=== PATIENT | female | born 1960 | race Caucasian/White ===

== ENCOUNTER 2016-08-30 08:36 | Emergency (ER) | payer OTHER ==
--- NOTE | 2016-08-30 11:32 | UC ---
Lower Extremity/Ankle HPI - HPI Summary HPI Summary: complaint of left foot pain woke up in the sunday night with bad headache and bit her tongue felt like she might have had seizure she got out of bed and felt pain in the \lateral side of her left foot swelling and pain has increased since yesterday ambulating and pressure increase the pain pain is in 5ifth toe and 4th and 5th metatarsals resting and elevation reduces the pain denies any headache and seizures since sunday contacted neurologist who recommened increase in depakote until her followup appt next week - History of Current Complaint Chief Complaint: UCLowerExtremity Stated Complaint: FOOT INJURY Time Seen by Provider: 08/30/16 11:16 Hx Obtained From: Patient Hx Last Menstrual Period: 09/2015 - Allergies/Home Medications Allergies/Adverse Reactions: Allergies Allergy/AdvReac Type Severity Reaction Status Date / Time Doxycycline Allergy Heartburn Verified 08/30/16 09:17 Ephedrine Allergy Unknown Verified 08/30/16 09:17 Reaction Details Home Medications: Home Medications Divalproex Sodium [Depakote] 500 mg PO BEDTIME 08/30/16 [History Confirmed 08/30] PMH/Surg Hx/FS Hx/Imm Hx Previously Healthy: Yes Neurological History: Seizures - Surgical History Surgical History: None - Family History Known Family History: Positive: Other - cancer Negative: Cardiac Disease, Hypertension, Diabetes - Social History Occupation: Employed Full-time Lives: With Family Alcohol Use: Weekly Alcohol Amount: couple times a week Substance Use Type: None Smoking Status (MU): Former Smoker - Immunization History Most Recent Influenza Vaccination: 2013 Most Recent Tetanus Shot: 2013 Most Recent Pneumonia Vaccination: not received Review of Systems Constitutional: Negative Skin: Negative Eyes: Negative ENT: Negative Respiratory: Negative Cardiovascular: Negative Gastrointestinal: Negative Genitourinary: Negative Motor: Negative Neurovascular: Negative Musculoskeletal: Other: - left foot pain Neurological: Negative Psychological: Negative All Other Systems Reviewed And Are Negative: Yes Physical Exam Triage Information Reviewed: Yes Appearance: No Pain Distress, Well-Nourished Vital Signs: Initial Vital Signs Temp 98.4 F 08/30/16 09:21 Pulse 75 08/30/16 09:21 Resp 16 08/30/16 09:21 BP 120/78 08/30/16 09:21 Pulse Ox 100 08/30/16 09:21 Vital Signs Reviewed: Yes Eyes: Positive: Conjunctiva Clear ENT: Positive: Pharynx normal, TMs normal Neck: Positive: No Lymphadenopathy Respiratory: Positive: Lungs clear, Normal breath sounds, No respiratory distress, No accessory muscle use Cardiovascular: Positive: RRR, No Murmur, Pulses Normal, Brisk Capillary Refill Abdomen Description: Positive: Nontender, Soft Bowel Sounds: Positive: Present Musculoskeletal: Positive: Other: - LLE-No bony deformities, tenderness in 4th and 5th metatarsal and joints of 4th and 5th toes, ecchymosis over distal 5th metatarsal, Full ROM dorsi/plantar flexion, inversion & eversion. Dupuyer test negative. Neurological Exam: Normal Psychological Exam: Normal Skin Exam: Normal Lower Extremity Course/Dx - Course Course Of Treatment: exam completed. xray fhows no fracture. will treat with rest, ice NSAIDS- followup with Dr Abdi if no improvement - Differential Dx/Diagnosis Differential Diagnosis/HQI/PQRI: Contusion, Fracture (Closed) Provider Diagnoses: left foot contusion Discharge - Discharge Plan Condition: Stable Disposition: HOME Patient Education Materials: Foot Contusion (ED) Referrals: Manuel Christine MD [Primary Care Provider] - Nirali Abdi MD [Medical Doctor] - Additional Instructions: Please use crutches for several days to rest your foot apply ice and elevate foot, take acetaminophen for pain as needed If no improvement call research specialist for an appointment. They will evaluate and determine if you need further treatment. Please review your discharge instructions. If your symptoms worsen call research specialist or return to urgent care.
[2016-08-30] MEDS ORDERED: Acetaminophen TAB* 325 MG PO ONE (11:38)
[2016-08-30 11:49] VITALS: BP 121/70
--- NOTE | 2016-08-30 12:36 | RAD ---
INDICATION: Left fourth and fifth metatarsal pain 5 days after doing art work COMPARISON: None. TECHNIQUE: 3 views of the left foot were obtained. FINDINGS: The adequately corticated bones are properly aligned. Joint spaces appear maintained. No fracture, dislocation or focal bony abnormality is seen. IMPRESSION: Normal radiograph of the left foot. If the patient's symptoms persist, follow-up imaging is recommended.
== END 2016-08-30 13:00 | disposition home or self-care (01) ==
LOC: UCEAST 08:36
DX: S90.32XA Contusion of left foot, initial encounter (principal); Z87.891 Personal history of nicotine dependence; X58.XXXA Exposure to other specified factors, initial encounter; Y92.9 Unspecified place or not applicable
CPT/HCPCS: 99212; A9270-GY; G0463

== ENCOUNTER 2016-09-20 14:29 | Emergency (ER) | payer OTHER ==
[2016-09-20 15:48] LABS: Urine Bilirubin Negative (Negative); Urine Glucose Negative (Negative); Urine Nitrite Negative (Negative)
[2016-09-20 16:19] LABS: Albumin 4.3 g/dL (3.2-5.2); Calcium 8.9 mg/dL (8.6-10.3); EGFR African American 165.4 (>60); EGFR Non-African American 128.6 (>60); Magnesium 1.8 mg/dL (1.9-2.7); Potassium 3.4 mmol/L (3.5-5.0); Total Bilirubin 0.4 mg/dL (0.2-1.0); Total Protein 7.3 g/dL (6.4-8.9)
[2016-09-20] MEDS ORDERED: Acetaminophen TAB* 325 MG PO ONE (16:25)
[2016-09-20 16:35] LABS: Hematocrit 36 % (35-47); Hemoglobin 12.8 g/dl (12.0-16.0); Mean Corpuscular HGB Conc 36 g/dl (31-36); Mean Corpuscular Hemoglobin 31 pg (27-31); Mean Corpuscular Volume 88 fL (80-97); Mean Platelet Volume 8 um3 (7.4-10.4); Red Blood Count 4.09 10^6/ul (4.0-5.4); Red Cell Distribution Width 13 % (10.5-15)
[2016-09-20 18:05] VITALS: BP 129/80
--- NOTE | 2016-09-20 18:26 | RAD ---
Indication: Right shoulder pain. 3 views of the right shoulder demonstrates a fracture of the distal clavicle. No significant displacement is noted. The humerus is otherwise unremarkable. Calcific tendinitis of the supraspinatus tendon is present. IMPRESSION: Fracture of the distal clavicle. Calcific tendinitis of the distal supraspinatous tendon.
--- NOTE | 2016-09-20 22:05 | ED ---
Guilherme Bedoya SooYoung, scribed for Dewayne Granger MD on 09/20/16 at 1503 . Neurological HPI - HPI Summary HPI Summary: A 55 y/o F presents to ED after sz onset [employer]. Pt had finished her grocery shopping, was in the frozen foods section when she had a sz. She woke up to EMS present. Associated sx: urinary incontinent, bit tongue, R-sided head trauma and R shoulder pain from the fall. Denies neck pain. Last sz episode prior to today was in Apr 2016. Pt saw Dr. Landa neuro, on 09/13/16, and did a medication change, took pt off Kepra, taking more Depakote. Pt had been seeing Dr. Villafana in [place] seen she was a teen, and only recently switched to Dr. Landa. - History of Current Complaint Chief Complaint: EDSeizure Stated Complaint: SEIZURE Time Seen by Provider: 09/20/16 15:01 Hx Obtained From: Patient, Family/Retail Supervisor - mother Hx Last Menstrual Period: 09/2015 Onset/Duration: Sudden Onset, Resolved Current Severity: Moderate Headache Location: Parietal (Right) Pain Intensity: 10 Pain Scale Used: 0-10 Numeric Aggravating: Medication Change Associated Signs and Symptoms: Positive: Pain - NAZARIO due to fall, R shoulder pain due to fall, Incontinent Bladder/Bowel - urinary. Negative: Neck Pain/Stiffness - Allergy/Home Medications Allergies/Adverse Reactions: Allergies Allergy/AdvReac Type Severity Reaction Status Date / Time Doxycycline Allergy Heartburn Verified 08/30/16 09:17 Ephedrine Allergy Unknown Verified 08/30/16 09:17 Reaction Details PMH/Surg Hx/FS Hx/Imm Hx Previously Healthy: No Endocrine/Hematology History: Denies: Hx Diabetes, Hx Thyroid Disease Cardiovascular History: Denies: Hx Hypertension Respiratory History: Denies: Hx Asthma, Hx Chronic Obstructive Pulmonary Disease (COPD) GI History: Denies: Hx Ulcer Musculoskeletal History: Denies: Hx Rheumatoid Arthritis Neurological History: Reports: Hx Seizures - since age 18,on Keppra and Depakote ,well controlled. Fall was not a seizure, Other Neuro Impairments/Disorders - Epilepsy - Cancer History Hx Chemotherapy: No Hx Radiation Therapy: No - Immunization History Date of Tetanus Vaccine: 2011 Date of Influenza Vaccine: None, avoids them Infectious Disease History: No Infectious Disease History: Denies: Hx Clostridium Difficile, Hx Hepatitis, Hx Human Immunodeficiency Virus (HIV), Hx of Known/Suspected MRSA, Hx Shingles, Hx Tuberculosis, Hx Known/ Suspected VRE, Hx Known/Suspected VRSA, History Other Infectious Disease, Traveled Outside the [place] in Last 30 Days - Family History Known Family History: Positive: Other - cancer Negative: Cardiac Disease, Hypertension, Diabetes - Social History Occupation: Unemployed - HOMEMAKER Lives: With Family Alcohol Use: Weekly Alcohol Amount: couple times a week Hx Substance Use: No Substance Use Type: Reports: None Hx Tobacco Use: Yes Smoking Status (MU): Former Smoker Review of Systems Negative: Fever Positive: Other - pos: tongue bite Positive: incontinence - urinary Positive: Arthralgia - R shoulder pain. Negative: Other - neg: denies neck pain Neurological: Other - pos: post-sz Positive: Headache - due to head trauma from fall All Other Systems Reviewed And Are Negative: Yes Physical Exam Triage Information Reviewed: Yes Vital Signs On Initial Exam: Initial Vitals Temp Pulse Resp BP Pulse Ox 97.9 F 79 20 131/87 98 09/20/16 14:40 09/20/16 14:40 09/20/16 14:40 09/20/16 14:40 09/20/16 14:40 Vital Signs Reviewed: Yes Appearance: Positive: Well-Appearing, No Pain Distress Skin: Positive: Warm, Skin Color Reflects Adequate Perfusion, Dry Head/Face: Positive: Cephalohematoma - SMALL CEPHALOHEMATOMA TO R PARIETAL WITH SUPERFICIAL ABRASION Eyes: Positive: Normal ENT: Positive: Normal ENT inspection Neck: Positive: Supple, Nontender Respiratory/Lung Sounds: Positive: Clear to Auscultation, Breath Sounds Present Cardiovascular: Positive: RRR Abdomen Description: Positive: Nontender, Soft Bowel Sounds: Positive: Present Musculoskeletal: Positive: Other - TENDERNESS TO ROM OF R SHOULDER Neurological: Positive: Normal Psychiatric: Positive: Normal, Affect/Mood Appropriate Diagnostics - Vital Signs Vital Signs Temp Pulse Resp BP Pulse Ox 09/20/16 14:43 79 16 131/87 99 09/20/16 14:42 80 13 99 09/20/16 14:40 97.9 F 79 20 131/87 98 - Laboratory Lab Results: Lab Results 09/20/16 09/20/16 09/20/16 Range/Units 15:27 15:52 15:52 WBC 8.0 (3.5-10.8) 10^3/ul RBC 4.09 (4.0-5.4) 10^6/ul Hgb 12.8 (12.0-16.0) g/dl Hct 36 (35-47) % MCV 88 (80-97) fL MCH 31 (27-31) pg MCHC 36 (31-36) g/dl RDW 13 (10.5-15) % Plt Count 229 (150-450) 10^3/ul MPV 8 (7.4-10.4) um3 Neut % (Auto) 64.4 (38-83) % Lymph % (Auto) 26.7 (25-47) % [place] % (Auto) 7.9 (1-9) % Eos % (Auto) 0.4 (0-6) % Baso % (Auto) 0.6 (0-2) % Absolute Neuts (auto) 5.2 (1.5-7.7) 10^3/ul Absolute Lymphs (auto) 2.1 (1.0-4.8) 10^3/ul Absolute Monos (auto) 0.6 (0-0.8) 10^3/ul Absolute Eos (auto) 0 (0-0.6) 10^3/ul Absolute Basos (auto) 0 (0-0.2) 10^3/ul Absolute Nucleated RBC 0 10^3/ul Nucleated RBC % 0 INR (Anticoag Therapy) 0.93 (0.89-1.11) Sodium (133-145) mmol/L Potassium (3.5-5.0) mmol/L Chloride (101-111) mmol/L Carbon Dioxide (22-32) mmol/L Anion Gap (2-11) mmol/L BUN (6-24) mg/dL Creatinine (0.51-0.95) mg/dL Est GFR ( Amer) (>60) Est GFR (Non-Af Amer) (>60) BUN/Creatinine Ratio (8-20) Glucose (70-100) mg/dL Lactic Acid (0.5-2.0) mmol/L Calcium (8.6-10.3) mg/dL Magnesium (1.9-2.7) mg/dL Total Bilirubin (0.2-1.0) mg/dL AST (13-39) U/L ALT (7-52) U/L Alkaline Phosphatase (34-104) U/L Total Protein (6.4-8.9) g/dL Albumin (3.2-5.2) g/dL Globulin (2-4) g/dL Albumin/Globulin Ratio (1-3) Urine Color Straw Urine Appearance Clear Urine pH 7.0 (5-9) Ur Specific [place] 1.005 L (1.010-1.030) Urine Protein Negative (Negative) Urine Ketones Trace H (Negative) Urine Blood Negative (Negative) Urine Nitrate Negative (Negative) Urine Bilirubin Negative (Negative) Urine Urobilinogen Negative (Negative) Ur Leukocyte Esterase Negative (Negative) Urine Glucose Negative (Negative) Valproic Acid (50-100) mcg/mL 09/20/16 09/20/16 Range/Units 15:52 15:52 WBC (3.5-10.8) 10^3/ul RBC (4.0-5.4) 10^6/ul Hgb (12.0-16.0) g/dl Hct (35-47) % MCV (80-97) fL MCH (27-31) pg MCHC (31-36) g/dl RDW (10.5-15) % Plt Count (150-450) 10^3/ul MPV (7.4-10.4) um3 Neut % (Auto) (38-83) % Lymph % (Auto) (25-47) % [place] % (Auto) (1-9) % Eos % (Auto) (0-6) % Baso % (Auto) (0-2) % Absolute Neuts (auto) (1.5-7.7) 10^3/ul Absolute Lymphs (auto) (1.0-4.8) 10^3/ul Absolute Monos (auto) (0-0.8) 10^3/ul Absolute Eos (auto) (0-0.6) 10^3/ul Absolute Basos (auto) (0-0.2) 10^3/ul Absolute Nucleated RBC 10^3/ul Nucleated RBC % INR (Anticoag Therapy) (0.89-1.11) Sodium 132 L (133-145) mmol/L Potassium 3.4 L (3.5-5.0) mmol/L Chloride 98 L (101-111) mmol/L Carbon Dioxide 27 (22-32) mmol/L Anion Gap 7 (2-11) mmol/L BUN 8 (6-24) mg/dL Creatinine 0.50 L (0.51-0.95) mg/dL Est GFR ( Amer) 165.4 (>60) Est GFR (Non-Af Amer) 128.6 (>60) BUN/Creatinine Ratio 16.0 (8-20) Glucose 93 (70-100) mg/dL Lactic Acid 1.4 (0.5-2.0) mmol/L Calcium 8.9 (8.6-10.3) mg/dL Magnesium 1.8 L (1.9-2.7) mg/dL Total Bilirubin 0.40 (0.2-1.0) mg/dL AST 20 (13-39) U/L ALT 14 (7-52) U/L Alkaline Phosphatase 52 (34-104) U/L Total Protein 7.3 (6.4-8.9) g/dL Albumin 4.3 (3.2-5.2) g/dL Globulin 3.0 (2-4) g/dL Albumin/Globulin Ratio 1.4 (1-3) Urine Color Urine Appearance Urine pH (5-9) Ur Specific [place] (1.010-1.030) Urine Protein (Negative) Urine Ketones (Negative) Urine Blood (Negative) Urine Nitrate (Negative) Urine Bilirubin (Negative) Urine Urobilinogen (Negative) Ur Leukocyte Esterase (Negative) Urine Glucose (Negative) Valproic Acid 91.0 (50-100) mcg/mL Result Diagrams: 09/20/16 15:52 09/20/16 15:52 Lab Statement: Any lab studies that have been ordered have been reviewed, and results considered in the medical decision making process. - Radiology R SHOULDER Xray Interpretation: Positive (See Comments) - IMPRESSION: Fracture of the distal clavicle. Calcific tendinitis of the distal supraspinatous tendon. Radiology Interpretation Completed By: Radiologist Re-Evaluation - Re-Evaluation 1 Re-Evaluation Time: 17:33 Change: Unchanged Comment: Discussing results with pt, and consult with Dr. Landa. Pt still have shoulder pain, will order XR. 2 Re-Evaluation Time: 18:37 Change: Improved Comment: Discussing XR results with pt. Course/Dx - Course Course Of Treatment: Ms. Luo had a breakthrough seizure today and fell, hurting her right shoulder. She was found to have a distal clavicle fracture, placed in a sling and recommended Ortho F/U. Dr. Landa recommended resarting her Keppra and following her in the office. - Diagnoses Provider Diagnoses: Clavicle fracture, Breakthrough seizure - Physician Notifications Discussed Care Of Patient With: Myesha Landa - neuro Time Discussed With Above Provider: 17:10 Instructed by Provider To: Have Pt Call For Appt. - and recommends restarting the Keppra Discharge - Discharge Plan Condition: Stable Disposition: HOME Prescriptions: oxyCODONE/Acetamin 5/325 MG* [Percocet 5/325 TAB*] 1 tab PO Q6H PRN #20 tab MDD 4 PRN Reason: Pain Patient Education Materials: Hydrocodone/Acetaminophen (By mouth), Oxycodone/ Acetaminophen (By mouth), Clavicle Fracture (ED), Recurrent Seizures in Adults ( ED) Referrals: Manule Christine MD [Primary Care Provider] - Myesha Landa MD [Medical Doctor] - 1 Week (Follow up with Dr. Landa within the week.) Bruce Aldridge MD [Medical Doctor] - 1 Week Additional Instructions: Follow up with Dr. Landa within the week. Follow up with anu Stone, within the week. Please return to the ED if you experience new or worsening symptoms. The documentation as recorded by the Guilherme gregorio SooYoung accurately reflects the service I personally performed and the decisions made by me, Dewayne Granger MD.
== END 2016-09-20 19:09 | disposition home or self-care (01) ==
LOC: ED 14:29
DX: S42.001A Fracture of unspecified part of right clavicle, initial encounter for closed fracture (principal); G40.909 Epilepsy, unspecified, not intractable, without status epilepticus; W19.XXXA Unspecified fall, initial encounter; Y93.89 Activity, other specified; Y92.512 Supermarket, store or market as the place of occurrence of the external cause; Z87.891 Personal history of nicotine dependence
CPT/HCPCS: 36415; 80053; 80164; 81003; 83605; 83735; 85025; 85610; 99283; A9270-GY